=== PATIENT | male | born 1975 | race Hispanic/Latino ===

== ENCOUNTER 2024-08-12 09:44 | Day surgery (SDC) | payer OTHER ==
[2024-08-12 10:19] LABS: Anion Gap 6.6 mEq/L (5.0-15.0); Potassium 3.6 mEq/L (3.5-5.1)
[2024-08-12] MEDS ORDERED: Ringers Lactate 1,000 ML IV ONE (10:33)
[2024-08-12] MEDS ORDERED: LIDOCAINE 1% MPF 5 ML VIAL ONE (12:16)
[2024-08-12] MEDS ORDERED: propofoL 200 MG/20 ML VIAL IV ONE (12:16)
--- NOTE | 2024-08-12 12:24 | EKG ---
Test Date: 2024-08-12 Test Time: 10:27:28 Social Sciences Instructor: ANY MEASUREMENT RESULTS: Intervals: Rate: 82 AK: 154 QRSD: 96 QT: 344 QTc: 401 Union: P: 38 AK: 154 QRS: -79 T: 32 INTERPRETIVE STATEMENTS: Normal sinus rhythm Left axis deviation Abnormal ECG No previous ECG available for comparison Electronically Signed On 08-12-24 12:24:15 CDT by Javy Cordova
[2024-08-12 13:49] VITALS: TEMP 97.8
[2024-08-12 13:51] VITALS: BP 127/86; O2SAT 100
== END 2024-08-12 13:40 | disposition home or self-care (01) ==
LOC: OR 09:44
PROVIDERS: ATTEND Surgery
PROC: 0DBN8ZX Excision of Sigmoid Colon, Via Natural or Artificial Opening Endoscopic, Diagnostic (ICD-10-PCS; 2024-08-12)
PROC: 0DBH8ZX Excision of Cecum, Via Natural or Artificial Opening Endoscopic, Diagnostic (ICD-10-PCS; 2024-08-12)
PROC: 0DBK8ZX Excision of Ascending Colon, Via Natural or Artificial Opening Endoscopic, Diagnostic (ICD-10-PCS; principal; 2024-08-12 12:45)
DX: Z12.11 Encounter for screening for malignant neoplasm of colon (principal); K64.8 Other hemorrhoids; D12.2 Benign neoplasm of ascending colon; D12.0 Benign neoplasm of cecum; D12.5 Benign neoplasm of sigmoid colon
CPT/HCPCS: 93005; 80048; 36415; 88305; 45385; J2704; J2001; J7120

== ENCOUNTER 2025-08-21 06:53 | Day surgery (SDC) | payer OTHER ==
[2025-08-17 10:55] LABS: Anion Gap 7.9 mEq/L (5.0-15.0); BUN Blood Urea Nitrogen 11.0 mg/dL (7-18); Glucose Level 86.0 mg/dL (74-106); Potassium 3.9 mEq/L (3.5-5.1)
[2025-08-21] MEDS: Ringers Lactate 1,000 ML IV ONE (07:20)
[2025-08-21] MEDS ORDERED: LIDOCAINE 1% MPF 5 ML VIAL ONE (07:24)
[2025-08-21 09:16] VITALS: BP 117/80; TEMP 97.1; O2SAT 98
== END 2025-08-21 09:00 | disposition home or self-care (01) ==
LOC: OR 06:53
PROVIDERS: ATTEND Surgery
PROC: 0DJD8ZZ Inspection of Lower Intestinal Tract, Via Natural or Artificial Opening Endoscopic (ICD-10-PCS; principal; 2025-08-21 08:00)
DX: Z12.11 Encounter for screening for malignant neoplasm of colon (principal); N42.9 Disorder of prostate, unspecified; K57.30 Diverticulosis of large intestine without perforation or abscess without bleeding; K64.8 Other hemorrhoids; Z86.0100 Personal history of colon polyps, unspecified
CPT/HCPCS: 93005; 80048; 36415; 45378; J2704; J2003; J7120